=== PATIENT | female | born 1930 | race Caucasian/White ===

== ENCOUNTER 2016-05-26 16:43 | Emergency (ER) | payer MEDICARE, BC ==
[~2016-05-26 16:43] MED LIST: ACIPHEX PO; CLIDINIUM; CLIDINIUM PO; LEVOXYL100 MCG PO; LEVOXYL50 MCG PO; LIBRAX PO; LYRICA50 PO; MACROBID PO; P5 PO; PRILO PO; PROAMAT5 PO; PROTONIX PO; SEROQUEL25 PO; T PO; VITAMIN B 12 IM; X5 PO; XANAX1 MG PO; ZOL100 PO; ZOL50 PO; [UNRECOGNIZED DRUG - OTHER] TOP
[2016-05-26 16:53] LABS: BASOPHILS 0 %; EOSINOPHILS 0.9 %; EOSINOPHILS ABSOLUTE 0.12 10/3/uL (0.0-0.53); HEMATOCRIT 41.5 % (36.0-48.0); HEMOGLOBIN 13.4 g/dL (12.0-16.0); IMMATURE GRANULOCYTES 0.6 %; IMMATURE GRANULOCYTES ABSOLUTE 0.08 10/3/uL (0.0-0.11); LYMPHOCYTES 10.6 %; LYMPHOCYTES ABSOLUTE 1.47 10/3/uL (0.67-4.30); MEAN CORPUS HGB CONC 32.3 g/dL (32.0-36.0); MEAN CORPUSCULAR HEMOGLOB 33.5 pg (26.0-34.0); MEAN CORPUSCULAR VOLUME 103.8 fL (80-100); MONOCYTES 6.4 %; MONOCYTES ABSOLUTE 0.89 10/3/uL (0.21-1.20); NEUTROPHILS 81.5 %; NEUTROPHILS ABSOLUTE 11.36 10/3/uL (2.02-8.40); PLATELET COUNT 238 10/3/uL (150-400); RBC DISTRIBUTION WIDTH 15.1 % (12.0-16.0)
[2016-05-26 16:56] LABS: ER CBC TAT 0 Hrs 09 Mins; MANUAL DIFF NO %; WHITE BLOOD CELLS 13.9 10/3/uL (4.5-10.5)
[2016-05-26 17:05] LABS: PROTIME (NOT ORD) 12.9 SEC (12.0-14.5)
[2016-05-26 17:07] LABS: PARTIAL THROMBO TIME 21.7 SEC (22.5-37.2)
[2016-05-26 17:09] LABS: BUN (BLOOD UREA NITROGEN) 16 MG/DL (6-23); CALCIUM, SERUM 9.2 MG/DL (8.5-10.4); CHEST PAIN PROFILE TAT 0 Hrs 22 Mins; CHLORIDE, SERUM 103 MMOL/L (96-112); CO2 (CARBON DIOXIDE) 30 MMOL/L (24-34); CREATININE 0.84 MG/DL (0.55-1.02); GFR AFRICAN AMERICAN 74 ML/MIN (>=60); GFR NON AFRICAN AMERICAN 64 ML/MIN (>=60); GLUCOSE, SERUM 110 MG/DL (60-99); POTASSIUM, SERUM 3.5 MMOL/L (3.5-5.3); SODIUM, SERUM 140 MMOL/L (135-148); TROPONIN I <0.02 NG/ML (<0.05)
[2016-05-26 18:14] LABS: ASCORBIC ACID (UR NOT ORDER) NEG (NEG); BILIRUBIN, URINE NEGATIVE (NEG); ER URINALYSIS TAT 0 Hrs 18 Mins; KETONE, URINE NEGATIVE (NEG); LEUKOCYTE ESTERASE(NOT OR TRACE (NEG); NITRITE (URINE) NEG (NEG); WBC (NOT ORDERED) (RFLEX) 1 (0-5)
[2016-08-30] MEDS ORDERED: CIP5 PO (19:11)
[2016-08-30] MEDS ORDERED: T PO (19:14)
[2016-08-30] MEDS ORDERED: SENTAB PO (19:16)
== END 2016-05-26 19:19 | disposition home or self-care (01) ==
LOC: ER 16:43
PROVIDERS: Emergency Medicine
DX: R55 Syncope and collapse (principal); F03.90 Unspecified dementia, unspecified severity, without behavioral disturbance, psychotic disturbance, mood disturbance, and anxiety; Z87.01 Personal history of pneumonia (recurrent); Z88.0 Allergy status to penicillin; Z88.5 Allergy status to narcotic agent; Z79.899 Other long term (current) drug therapy
CPT/HCPCS: 71010; 80048; 81001; 83735; 84484; 85025; 85610; 85730; 93005; 99284

== ENCOUNTER 2016-08-15 23:00 | Observation (INO) | payer MEDICARE, BC ==
--- NOTE | ~2016-08-15 | DS ---
Discharge Summary [facility] [address] [facility] [place]. [address] NAME: HERMELINDA HAYNES : 34 STATUS : ADM Sam PAT#: [id number] AGE: 85 ADM/REG DATE : 08/15/16 MR#: [id number] REPORT SERV DATE: 08/17/16 DICTATED BY: RAZA OLGUIN DATE: 08/17/16 REPORT STATUS : Draft TRANSCRIBED BY: MODL DATE: 08/17/16 ADMISSION DATE: 08/15/2016 DISCHARGE DATE: 08/17/2016 DISCHARGE DIAGNOSES: 1. Left lower extremity cellulitis. 2. Hypothyroidism. 3. History of ALL post chemotherapy 2015. 4. History of esophageal stricture. 5. Dementia at baseline. 6. Diabetes mellitus type 2. Blood glucose 116. Stable. 7. Hypotension. Blood pressure 106/73. Stable. LABORATORY DATA: WBC 7.8, hemoglobin 12.4, hematocrit 38.1, and platelet count is 213. Procalcitonin is less than 0.05. Sodium is 145, potassium is 3.5, chloride is 110, CO2 is 26, BUN is 13, creatinine is 0.70, glucose is 91. Wound culture, rare WBCs. Blood cultures are negative. COURSE AT HOSPITAL STAY: Please refer to history and physical dictated by Dr. Pettit on 08/16/2016, for complete admission details. This patient is an 85-year-old female with a history of ALL post chemotherapy 2005. She presented to [facility]'s emergency room with complaints of pain and swelling of the left lower extremity with noted wound. The patient had been evaluated outpatient, started on Z-Roel, which the patient stated her left lower extremity had not improved. She does state that she has had a recent tetanus shot. The patient was admitted to the hospital. Wound culture and blood cultures were obtained, which were negative. The patient was initially started on vancomycin and cefepime. Post cultures, the patient was changed to Ancef and then transitioned to Keflex 500 mg p.o. every six hours for a total of antibiotics for seven days. At this time, pain is controlled. We discussed with the patient possible physical therapy at home, the patient did decline. We will have home health follow the patient with wound care. The patient should follow up with primary care in five to seven days. The patient did state agreement prescription for Keflex has been provided. DISCHARGE MEDICATIONS: 1. Xanax 0.5 mg p.o. at bedtime. 2. Levothyroxine 50 mcg p.o. every morning. 3. Librax one cap p.o. twice daily. 4. Protonix 40 mg one p.o. every day. 5. Lyrica 50 mg tab twice daily. 6. Zoloft 100 mg p.o. every day. 7. Midrin 7.5 mg p.o. breakfast and lunch. 8. Midrin 5 mg one p.o. at supper. 9. Prednisone 5 mg one p.o. daily. 10.Keflex 500 mg p.o. every six hours. This discharge took less than 30 minutes. Discharge Summary [address] [place]. [address] NAME: HERMELINDA HAYNES : 32 STATUS : ADM Sam PAT#: [id number] AGE: 85 ADM/REG DATE : 08/15/16 MR#: [id number] REPORT SERV DATE: 08/17/16 DICTATED BY: RAZA OLGUIN DATE: 08/17/16 REPORT STATUS : Draft TRANSCRIBED BY: LAUREN DATE: 08/17/16 DICTATED BY: Raza Olguin NP [facility]/LAUREN Raza Olguin NP / [id number] CC: Manoj Jimenez M.D.
--- NOTE | ~2016-08-15 | HP ---
History And Physical [facility] [address] [facility] [place]. [address] NAME: HERMELINDA URIBE : 32 STATUS : ADM Sam PAT#: [id number] AGE: 85 ADM/REG DATE : 08/15/16 MR#: [id number] REPORT SERV DATE: 08/16/16 DICTATED BY: LUCA CONNER DATE: 08/16/16 REPORT STATUS : Draft TRANSCRIBED BY: MODL DATE: 08/16/16 DATE OF ADMISSION: 08/15/2016 CHIEF COMPLAINT: Pain and swelling and ulcer on the left leg. HISTORY OF PRESENT ILLNESS: This is an 85-year-old female with a history of ALL status post chemotherapy in 2005, history of recurrent esophageal strictures, gastroesophageal reflux disease, who presents to the emergency room at [facility] with the above-mentioned complaint. History is obtained from the patient, her who is at bedside, and reviewing data available on the [facility] system. According to Mrs. Uribe and her , she had been in her usual state of health until a week ago when they had been to buddhism occasion and tripped over a door jam. She fell down and got a cut on her left lower extremity. There was some help available there and they had a bandage placed and since then, the patient's had been diligently changing the bandages. Last Tuesday, they also went to a practice in [place] where they got the wound cleaned, dressings were changed, and they gave him extra supplies as well. She was also placed on an outpatient course of oral Z-Roel. She was current with tetanus shots. Since then, he had been again doing the dressings and this morning, saw swelling around the ulcer on the foot. This soon became red. The area was swelling up and he decided to bring her to the emergency room to be evaluated. In the emergency room, she did have cellulitis of her left leg and Hospitalist Service was asked to admit her for further evaluation and treatment. She had failed outpatient antibiotic therapy. At the time of my evaluation, she denied any chest pain, palpitations, or orthopnea. She had no cough, hemoptysis, night sweats, or weight loss. She denied any falls or loss of consciousness other than those mentioned above. She has had no fevers, chills, nausea, vomiting, diarrhea, hematemesis, hematochezia, or hematuria. No other history of recent travel or exposures other than those mentioned above. PAST MEDICAL HISTORY: Significant for history of ALL status post chemotherapy in 2005, history of esophageal stricture with history of gastroesophageal reflux disease, dementia, history of hypotension, on midodrine, and hypothyroidism. SOCIAL HISTORY: She has never smoked. Does not drink or use recreational drugs. 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 FAMILY HISTORY: Noncontributory. MEDICATIONS: At home were reviewed by me in the chart today and reordered by me. REVIEW OF SYSTEMS: As in history of present illness. All other systems were reviewed in detail and are quite History And Physical [address] [place]. [address] NAME: HERMELINDA URIBE : 32 STATUS : ADM Sam PAT#: [id number] AGE: 85 ADM/REG DATE : 08/15/16 MR#: [id number] REPORT SERV DATE: 08/16/16 DICTATED BY: LUCA CONNER DATE: 08/16/16 REPORT STATUS : Draft TRANSCRIBED BY: LAUREN DATE: 08/16/16 unremarkable. PHYSICAL EXAMINATION: GENERAL: This is a very pleasant 85-year-old, not in any acute distress. HEENT: Her head is atraumatic, normocephalic. She is alert, awake, oriented to time, place, and person. Her pupils are equal, reacting to light and accommodating. External ocular muscles are intact. Membranes are moist and pink. Sclerae are nonicteric. NECK: Supple with no jugular venous distention, lymphadenopathy, or thyromegaly. LUNGS: Clear to auscultation with no wheezes, rubs, or crackles. HEART: Heart sounds were regular with no murmurs, rubs, or gallops. ABDOMEN: Soft, nontender. Bowel sounds are present. EXTREMITIES: Showed ulcer on the anterior aspect of the left leg with redness and swelling around the area. It is warm to touch as well and painful to palpation. Peripheral pulses are palpable and equal. There was no cyanosis or clubbing. The right lower extremity appears to be normal. NEUROLOGIC: Grossly intact. No focal sensory or motor deficits. Higher functions appeared intact. She was able to move all four extremities. VITAL SIGNS: Her temperature today was 97.4, pulse was 81, respirations 16 a minute, and blood pressure was 170/59, oxygen saturations were 94% on 2 L via nasal cannula. LABORATORY DATA: Reviewed on the [facility] system showed a normal CMP. Alkaline phosphatase was 50. ALT and AST were within normal limits. CBC showed a white blood cell count of 8500, hemoglobin was 13.4, hematocrit 40.6, and platelet count was 221,000. Urinalysis was not performed today. Films of the x-ray of the ankle many views were reviewed by me on the PACS today and interpreted by me. There was no soft tissue abscess. There was no periosteal elevation or other abnormalities seen. There were no fractures. IMPRESSION: 1. Left leg cellulitis. 2. Hypothyroidism. 3. History of esophageal strictures. 4. ALL, status post chemotherapy in 2005. On chronic prednisone therapy. 5. History of gastroesophageal reflux disease. 6. Dementia. 7. Hypotension. On midodrine. 8. Diabetes mellitus type 2. PLAN: We will admit Mrs. Uribe to the Hospitalist Service with defensive monitoring for a 24 hour observation period. After cultures are drawn, we will start her on empiric IV antibiotics. We will start her on cefepime and vancomycin. We will check her procalcitonin level. We will also check her thyroid function. Continue thyroid supplementation and other home medications as ordered. She will also be placed on unfractionated heparin for DVT prophylaxis while here. We will also put her on blood sugar control with NovoLog given subcutaneously per sliding scale and check her A1c. She is on metformin at home and per history, she does have diabetes recorded. However, when I asked her, she denied having diabetes. We will go ahead and check her A1c as well. Please see today's orders for all the details. I have discussed the above plans with the patient. Her questions were History And Physical [address] [address] NAME: HERMELINDA URIBE : 34 STATUS : ADM Sam PAT#: [id number] AGE: 85 ADM/REG DATE : 08/15/16 MR#: [id number] REPORT SERV DATE: 08/16/16 DICTATED BY: LUCA CONNER DATE: 08/16/16 REPORT STATUS : Draft TRANSCRIBED BY: LAUREN DATE: 08/16/16 answered and she is agreeable to the above recommendations. Hospitalist Service will be following her during her stay here. /LAUREN Luca Conner M.D. / [id number] CC: MD Manuel Villalta M.D.
[2016-08-16 01:00] LABS: BASOPHILS 0.1 %; BASOPHILS ABSOLUTE 0.01 10/3/uL (0.0-0.16); EOSINOPHILS 3.1 %; EOSINOPHILS ABSOLUTE 0.26 10/3/uL (0.0-0.53); HEMATOCRIT 40.6 % (36.0-48.0); HEMOGLOBIN 13.4 g/dL (12.0-16.0); IMMATURE GRANULOCYTES 0.2 %; IMMATURE GRANULOCYTES ABSOLUTE 0.02 10/3/uL (0.0-0.11); LYMPHOCYTES 30.9 %; LYMPHOCYTES ABSOLUTE 2.61 10/3/uL (0.67-4.30); MEAN CORPUSCULAR HEMOGLOB 34.5 pg (26.0-34.0); MEAN CORPUSCULAR VOLUME 104.6 fL (80-100); MEAN PLATELET VOLUME 11.4 fL (9.2-13.0); MONOCYTES 11.2 %; MONOCYTES ABSOLUTE 0.95 10/3/uL (0.21-1.20); NEUTROPHILS 54.5 %; NEUTROPHILS ABSOLUTE 4.61 10/3/uL (2.02-8.40); PLATELET COUNT 221 10/3/uL (150-400); RBC DISTRIBUTION WIDTH 15.1 % (12.0-16.0); RED CELL COUNT 3.88 10/6/uL (4.0-5.6); WHITE BLOOD CELLS 8.5 10/3/uL (4.5-10.5)
[2016-08-16 01:02] LABS: MANUAL DIFF NO %
[2016-08-16] MEDS ORDERED: LYRICA50 PO (01:15)
[2016-08-16] MEDS ORDERED: LEVOXYL50 MCG PO (01:15)
[2016-08-16 01:16] LABS: A/G RATIO 1.3 (0.7-1.9); ALBUMIN 3.4 G/DL (3.5-5.0); ALKALINE PHOSPHATASE 50 U/L (45-117); BUN (BLOOD UREA NITROGEN) 15 MG/DL (6-23); CALCIUM, SERUM 9.2 MG/DL (8.5-10.4); CHLORIDE, SERUM 108 MMOL/L (96-112); CO2 (CARBON DIOXIDE) 31 MMOL/L (24-34); CREATININE 0.73 MG/DL (0.55-1.02); GFR AFRICAN AMERICAN 88 ML/MIN (>=60); GFR NON AFRICAN AMERICAN 76 ML/MIN (>=60); GLOBULIN 2.7 G/DL (2.5-4.1); GLUCOSE, SERUM 91 MG/DL (60-99); POTASSIUM, SERUM 3.9 MMOL/L (3.5-5.3); SGPT(ALT) 18 U/L (5-65); SODIUM, SERUM 144 MMOL/L (135-148); TOTAL BILIRUBIN 0.2 MG/DL (0-1.2); TOTAL PROTEIN 6.1 G/DL (6.0-8.5)
[2016-08-16] MEDS ORDERED: X5 PO (01:16)
[2016-08-16] MEDS ORDERED: ZOL100 PO (01:16)
[2016-08-16] MEDS ORDERED: LIBRAX PO (01:16)
[2016-08-16 01:18] LABS: SGOT(AST) 18 U/L (5-40)
[2016-08-16] MEDS ORDERED: PROAM25 PO (01:18)
[2016-08-16] MEDS ORDERED: PROTONIX PO (01:19)
[2016-08-16] MEDS ORDERED: PROAMAT5 PO (01:19)
[2016-08-16] MEDS ORDERED: P5 PO (01:20)
[2016-08-16 02:09] LABS: PROCALCITONIN <0.05 ng/mL (<0.5)
[2016-08-16 08:28] LABS: BASOPHILS 0.1 %; BASOPHILS ABSOLUTE 0.01 10/3/uL (0.0-0.16); EOSINOPHILS 2.5 %; EOSINOPHILS ABSOLUTE 0.22 10/3/uL (0.0-0.53); HEMATOCRIT 40.8 % (36.0-48.0); HEMOGLOBIN 13.2 g/dL (12.0-16.0); IMMATURE GRANULOCYTES 0.1 %; IMMATURE GRANULOCYTES ABSOLUTE 0.01 10/3/uL (0.0-0.11); LYMPHOCYTES 29.4 %; LYMPHOCYTES ABSOLUTE 2.57 10/3/uL (0.67-4.30); MEAN CORPUS HGB CONC 32.4 g/dL (32.0-36.0); MEAN CORPUSCULAR HEMOGLOB 33.8 pg (26.0-34.0); MEAN CORPUSCULAR VOLUME 104.6 fL (80-100); MEAN PLATELET VOLUME 11.5 fL (9.2-13.0); MONOCYTES 10.3 %; NEUTROPHILS 57.6 %; NEUTROPHILS ABSOLUTE 5.02 10/3/uL (2.02-8.40); PLATELET COUNT 231 10/3/uL (150-400); RBC DISTRIBUTION WIDTH 15.2 % (12.0-16.0); WHITE BLOOD CELLS 8.7 10/3/uL (4.5-10.5)
[2016-08-16 08:31] LABS: MANUAL DIFF NO %
[2016-08-16 08:48] LABS: BUN (BLOOD UREA NITROGEN) 13 MG/DL (6-23); CALCIUM, SERUM 9.3 MG/DL (8.5-10.4); CHLORIDE, SERUM 110 MMOL/L (96-112); FREE T4 0.93 NG/DL (0.76-1.46); GFR AFRICAN AMERICAN 93 ML/MIN (>=60); GFR NON AFRICAN AMERICAN 80 ML/MIN (>=60); GLUCOSE, SERUM 91 MG/DL (60-99); PHOSPHORUS, SERUM 2.7 MG/DL (2.5-4.5); POTASSIUM, SERUM 3.5 MMOL/L (3.5-5.3); SODIUM, SERUM 145 MMOL/L (135-148)
[2016-08-16 08:49] LABS: CO2 (CARBON DIOXIDE) 26 MMOL/L (24-34)
[2016-08-16 12:41] LABS: PROCALCITONIN <0.05 ng/mL (<0.5)
[2016-08-17 03:35] LABS: BASOPHILS 0.1 %; BASOPHILS ABSOLUTE 0.01 10/3/uL (0.0-0.16); EOSINOPHILS 4.1 %; EOSINOPHILS ABSOLUTE 0.32 10/3/uL (0.0-0.53); HEMATOCRIT 38.1 % (36.0-48.0); HEMOGLOBIN 12.4 g/dL (12.0-16.0); IMMATURE GRANULOCYTES 0.1 %; IMMATURE GRANULOCYTES ABSOLUTE 0.01 10/3/uL (0.0-0.11); LYMPHOCYTES 35.9 %; MEAN CORPUS HGB CONC 32.5 g/dL (32.0-36.0); MEAN CORPUSCULAR HEMOGLOB 34.3 pg (26.0-34.0); MEAN CORPUSCULAR VOLUME 105.5 fL (80-100); MEAN PLATELET VOLUME 11.1 fL (9.2-13.0); MONOCYTES 11.4 %; MONOCYTES ABSOLUTE 0.89 10/3/uL (0.21-1.20); NEUTROPHILS 48.4 %; NEUTROPHILS ABSOLUTE 3.76 10/3/uL (2.02-8.40); PLATELET COUNT 213 10/3/uL (150-400); RED CELL COUNT 3.61 10/6/uL (4.0-5.6); WHITE BLOOD CELLS 7.8 10/3/uL (4.5-10.5)
[2016-08-17 03:36] LABS: MANUAL DIFF NO %
[2016-08-17] MEDS ORDERED: K500 PO (11:46)
[2016-08-30] MEDS ORDERED: CIP5 PO (19:11)
[2016-08-30] MEDS ORDERED: T PO (19:14)
[2016-08-30] MEDS ORDERED: SENTAB PO (19:16)
== END 2016-08-17 13:37 | disposition home or self-care (01) ==
LOC: ER 23:00 → 4EA 23:59
PROVIDERS: Internal Medicine; Nurse Practitioner Acute Care
DX: L03.116 Cellulitis of left lower limb (principal); E03.9 Hypothyroidism, unspecified; F03.90 Unspecified dementia, unspecified severity, without behavioral disturbance, psychotic disturbance, mood disturbance, and anxiety; E11.9 Type 2 diabetes mellitus without complications; I95.9 Hypotension, unspecified; Z79.2 Long term (current) use of antibiotics; Z79.899 Other long term (current) drug therapy; Z88.0 Allergy status to penicillin; Z88.5 Allergy status to narcotic agent; Z90.711 Acquired absence of uterus with remaining cervical stump; Z96.642 Presence of left artificial hip joint; Z98.890 Other specified postprocedural states; Z90.89 Acquired absence of other organs
CPT/HCPCS: 73610-LT; 80048; 80053; 82962; 83036; 83735; 84100; 84145; 84439; 84443; 85025; 87040; 87070; 87077; 87186; 87205; 96365; 96366; 96372; 96375; 96376; 99284; A9270-GY; G0378; J0690; J0692; J3370